=== PATIENT | female | born 2000 | race Two or more races ===

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

== ENCOUNTER 2024-02-12 22:25 | Emergency (ER) | payer MEDICAID ==
[~2024-02-12] VITALS: Ht 175.3 cm; Wt 95.0 kg
[2024-02-12 22:29] VITALS: BP 124/82; PULSE 100; RESP 16; TEMP 98.4; O2SAT 100
[2024-02-13] MEDS ORDERED: BENZ30CR2 TOP (00:05)
== END 2024-02-13 00:40 | disposition home or self-care (01) ==
LOC: ER 22:26
DX: B34.9 Viral infection, unspecified (principal); Z79.899 Other long term (current) drug therapy
CPT/HCPCS: 99282